=== PATIENT | male | born 1990 | race Caucasian/White ===

== ENCOUNTER 2024-09-23 16:06 | Outpatient (AMB) | payer OTHER, SELFPAY ==
--- NOTE | 2024-09-23 16:07 | MHC.OFFVIS ---
Vital Signs 09/23/24 16:08 09/23/24 16:11 Height 5 ft 11 in 5 ft 11 in Weight 180 lb 180 lb BMI 25.1 25.1 BP 142/65 H 142/65 H Blood Pressure Location Lt brachial Position Sitting Pulse 88 88 Pulse Source Pulse Oximeter Pulse Oximeter Pulse Oximetry (%) 98 98 Oxygen Delivery Method Room Air Room Air Intake Visit Reasons: MAT intake Allergies No Known Allergies Allergy (Verified 09/23/24 16:13) HPI Comments Details: The patient is a 34-year-old male who presents for an intake for substance use disorder. Reports he was following up with treatment in [facility] with Sublocade 100 mg per month, due to insurance, he was unable to continue treatment at this location. Reports 1 year of sobriety from alcohol and opiate use denies other substances with the exception of vaping daily and vaping THC 2 times per week. Reports working full-time and this keeps him busy as he tends to work long hours. Recently was prescribed buprenorphine-naloxone 8-2 mg daily and he uses them intermittently as he does not like to take the films. Reports following up with mental health services in [facility]. Review of Systems Const All systems reviewed & are unremarkable except as noted in HPI and below Physical Exam Vital Signs: Last Vital Signs Pulse 88 09/23/24 16:11 BP 142/65 H 09/23/24 16:11 Pulse Ox 98 09/23/24 16:11 Oxygen Delivery Method Room Air 09/23/24 16:11 BMI result Body Mass Index 25.1 Const General: cooperative Nutritional Appearance: thin Orientation/consciousness: patient oriented x3 Limitations: no limitations HEENT Head: Yes normal to inspection Ears: hearing grossly normal bilaterally General nose exam: Normal external nose present Face and sinus: Yes normal facial exam Mouth: Normal oral and palatal mucosa present Eyes General: appearance normal, both eyes and all related structures Periorbital: periorbital findings normal Eyelids: Yes eyelids normal Conjunctivae: conjunctivae normal Sclerae: sclerae normal Corneas: corneas normal Pupils: Equal, round and reactive pupils present Neck Neck: Yes normal visual inspection Chest Chest palpation & inspection: normal inspection of the chest Resp Effort & Inspection: normal respiratory effort Auscultation: clear to auscultation bilaterally Cardio Rate: regular rate Rhythm: regular rhythm GI Inspection: Yes normal to inspection Neuro General: patient oriented x3 Cranial nerves: Yes Equal, round and reactive pupils present Psych Appearance: well kempt Mental Status: mental status grossly normal Speech and movement: Normal speech and movement present Affect: normal affect Attitude: cooperative Thought process: Normal thought process present Thought content: Normal thought content present Insight: Good insight present (Psych) Judgement: Good judgement present (Psych) Results AMB 14 Panel Urine Drug Screen Urine Marijuana (THC) Positive Last Edit by Skyler Arias CMA on 09/23/24 16:16 Urine Cocaine Negative Last Edit by Skyler Arias CMA on 09/23/24 16:16 Urine Morphine Negative Last Edit by Skyler Arias CMA on 09/23/24 16:16 Urine Methamphetamine Negative Last Edit by Skyler Arias CMA on 09/23/24 16:16 Urine Amphetamine Negative Last Edit by Skyler Arias CMA on 09/23/24 16:16 Urine Benzodiazepine Negative Last Edit by Sklyer Arias CMA on 09/23/24 16:16 Urine Barbiturates Negative Last Edit by Skyler Arias CMA on 09/23/24 16:16 Urine Methadone Negative Last Edit by Skyler Arias CMA on 09/23/24 16:16 Urine Buprenorphine Positive Last Edit by Skyler Arias CMA on 09/23/24 16:16 Urine Tricyclic Antidepressant Negative Last Edit by Skyler Arias CMA on 09/23/24 16:16 Urine MDMA Negative Last Edit by Skyler Arias CMA on 09/23/24 16:16 Urine Oxycodone Negative Last Edit by Skyler Arias CMA on 09/23/24 16:16 Urine Phencyclidine Negative Last Edit by Skyler Arias CMA on 09/23/24 16:16 Urine Propoxyphene Negative Last Edit by Skyler Arias CMA on 09/23/24 16:16 Results Reviewed Results Reviewed: Laboratory Last Values POC Urine Buprenorphine Positive 09/23/24 16:13 POC Urine Morphine Negative 09/23/24 16:13 POC Urine Oxycodone Negative 09/23/24 16:13 POC Urine Methadone Negative 09/23/24 16:13 POC Urine Propoxyphene Negative 09/23/24 16:13 POC Urine Barbiturates Negative 09/23/24 16:13 POC U Tricyclic Antidpr Negative 09/23/24 16:13 POC Urine PCP Negative 09/23/24 16:13 POC Ur Amphetamines Negative 09/23/24 16:13 POC Ur Methamphetamine Negative 09/23/24 16:13 POC Urine MDMA Negative 09/23/24 16:13 POC Ur Benzodiazepine Negative 09/23/24 16:13 POC Urine Cocaine Negative 09/23/24 16:13 POC Ur Marijuana (THC) Positive 09/23/24 16:13 Assessment & Plan Assessment & Plan (1) Opioid use disorder, severe, in early remission: Code(s): F11.21 - Opioid dependence, in remission Category: Medical Plan The plan of care is to order the Sublocade 100 mg per month pending insurance approval. The patient to continue in mental health services and to take buprenorphine-naloxone 8-2 mg daily as prescribed by previous provider. Orders: Orders AMB 14 Panel Urine Drug Screen 09/23/24 Z51.81 - Encounter for therapeutic drug level monitoring Patient Instructions: - Continue with buprenorphine-naloxone 8-2 mg daily as prescribed by previous provider. - [facility] will call when Sublocade 100 mg per month is approved. - Call [facility] with questions or concerns. Coding Level of Care Code New Pt Level 3 (16816) Diagnoses Opioid use disorder, severe, in early remission F11.21 MAT Intake Nursing Intake Reason for visit: Continuation of MAT-Sublocade 100 mg Are you currently using?: No When was your last use?: Alcohol 1 year What is your source of income?: Employed [employer] What is your current relationship status?: Single Current PCP: [facility] Date of last visit: July 2024 Referral Source: Self Details: Transition in care due to change in insurance Substance Abuse History Substance Abuse History (includes route, frequency and quantity): Buprenorphine/naloxone, Oxycodone product (12 years ago), Benzodiazepines (15 years ago), Alcohol, Marijuana (recreationally), Kratum (Started Gabapentin to get off of Kreatum), Tobacco (vape current) and Other (Past history of Ketamine & DXM 12-13 years ago, MDMA 4-5 years ago) Age of first use: 14 alcohol Social History Domestic Violence concerns: no Children: no Do you have a support system?: yes friends Current mode of transportation?: own vehicle Where are you currently residing?: House in [place] [facility] with roommates LMP: NA IV Drug Use Have you ever belonged to a needle exchange program?: No Do you buy needles at a pharmacy?: No Have you ever overdosed?: No Number of lifetime overdoses: 0 Have you ever been hospitalized for an overdose?: No Was Naloxone administered?: Not applicable Recovery History Have you had any periods of recovery?: Yes What is your longest time in recovery?: Currently When was the last time you were in recovery?: One year Have you ever had inpatient treatment for your substance abuse disorder?: Yes Have you been in an inpatient detoxification program?: Yes Have you been in an inpatient Rehab/[place] house?: Yes Have you been in an outpatient Methadone Maintenance program?: No Have you been in an outpatient Suboxone Maintenance program?: Yes Have you been in an AA/NA support program?: No Have you had a Recovery Support Waste[employer] Project Manager?: No (But interested in peer recovery support) Have you had Peer Support?: No (But interested in peer recovery support) Behavioral Health History Do you have a current provider? If so, who?: yes Berenice Tracey [facility] diagnosis: anxiety/depression History of other addictive behavior: no History of inpatient psychiatric hospitalization? If so, how many? Most Recent? Where?: yes [facility] History of self harming thoughts?: Yes (history of SI but no intention) History of homicidal or suicidal intentions?: Yes (history of SI but no intention) Legal History History of incarceration: No Currently on parole or probation: No Court mandated programs: No Pending court cases: No DCF involvement: No
[2024-09-23 16:08] VITALS: BP 142/65; PULSE 88; O2SAT 98; BMI 25.1
[2024-09-23 16:11] VITALS: BP 142/65; PULSE 88; O2SAT 98; BMI 25.1
== END 2024-09-24 08:27 | disposition home or self-care (01) ==
PROVIDERS: Visit Provider Clinical Nurse Specialist Psychiatric/Mental Health
DX: Z51.81 Encounter for therapeutic drug level monitoring (principal)

== ENCOUNTER → 2024-09-23 16:06 | Outpatient (BNVA) | payer SELFPAY | PROVIDERS: Visit Provider Clinical Nurse Specialist Psychiatric/Mental Health | DX: F11.21 Opioid dependence, in remission (principal) | CPT/HCPCS: 80307 ==